=== PATIENT | male | born 1945 | race Hispanic/Latino ===

== ENCOUNTER 2023-05-21 06:11 | Day surgery (SDC) | payer OTHER ==
[2023-05-17 11:51] VITALS: BP 146/65; PULSE 51; RESP 16
[2023-05-17 11:57] LABS: BASOPHILS # (AUTO) 0.03 K/uL (0.00-0.20); BASOPHILS % (AUTO) 0.9 % (0.0-5.0); EOSINOPHILS # (AUTO) 0.09 K/uL (0.00-0.70); EOSINOPHILS % (AUTO) 2.7 % (0.0-8.0); HEMATOCRIT 35.8 % (42-54); IMMATURE GRANULOCYTE ABSOLUTE 0.01 K/uL (0-1); LYMPHOCYTES # (AUTO) 0.7 K/uL (1.0-4.8); LYMPHOCYTES % (AUTO) 22.1 % (21.0-51.0); MEAN CORPUSCULAR HEMOGLOBIN 32.1 pg (27.0-33.0); MEAN CORPUSCULAR HGB CONC 32.7 g/dL (32.0-36.0); MEAN CORPUSCULAR VOLUME 98.4 fL (79-99); MONOCYTES # (AUTO) 0.4 K/uL (0.1-1.0); MONOCYTES % (AUTO) 11.5 % (3.0-13.0); NEUTROPHILS # (AUTO) 2.1 K/uL (1.8-7.7); NEUTROPHILS % (AUTO) 62.5 % (40.0-77.0); PLATELET COUNT (AUTO) 128 K/uL (130-400); RED BLOOD CELL COUNT(AUTO) 3.64 MIL/uL (4.50-6.20); WHITE BLOOD COUNT (AUTO) 3.3 K/uL (4.8-10.8)
[2023-05-17 12:10] LABS: POTASSIUM 3.9 mmol/L (3.5-5.1)
[2023-05-17 12:19] LABS: INR 0.99 (0.85-1.15); PROTHROMBIN TIME 11.5 SEC (9.6-11.6)
[2023-05-17 12:20] LABS: PARTIAL THROMBOPLASTIN TIME 27.6 SEC (26.3-35.5)
[2023-05-17 12:23] LABS: B-TYPE NATRIURETIC PEPTIDE 62 pg/mL (0-100)
[2023-05-17 12:36] LABS: ADD UA MICROSCOPIC YES
[2023-05-17 12:38] LABS: APPEARANCE,URINE CLEAR (CLEAR); BILIRUBIN,URINE NEGATIVE (NEGATIVE); COLOR,URINE YELLOW (YELLOW); GLUCOSE, URINE (UA) NEGATIVE (NEGATIVE); KETONES,URINE NEGATIVE (NEGATIVE); LEUKOCYTE ESTERASE ,URINE NEGATIVE Leu/uL (NEGATIVE); MUCUS,URINE RARE LPF (None Seen); NITRATE,URINE NEGATIVE (NEGATIVE); PROTEIN,URINE NEGATIVE (NEGATIVE); SQUAMOUS EPITHELIAL CELL,UR RARE /HPF (0-2); UROBILINOGEN,URINE 0.2 mg/dL (0.2-1.0); WBC,URINE 0-1 /HPF (0-1)
[2023-05-21] VITALS (11 sets, daily range): BP systolic 141–168; BP diastolic 60–74; PULSE 43–63; RESP 10–14
[~2023-05-21] VITALS: Ht 172.7 cm; Wt 66.6 kg
[~2023-05-21 06:11] MED LIST: ATOR10 PO; CHOL100046 PO; CLOP75TA32 PO; GABA-529 PO; LOSA25TA41 PO; METO25TA6 PO; NITR0.4T50 SL; PANT40TA55 PO
[2023-05-21] MEDS ORDERED: 0.9%NACL 1000ML 1,000 ML IV ONE (07:27)
[2023-05-21] MEDS ORDERED: HEPARIN 10,000 UNIT/10ML (1,000 UNIT/ML) VIAL ONE (08:32)
[2023-05-21] MEDS ORDERED: IOHEXOL 350 MG/ML 100ML INFUS..BTL IV ONE (08:32)
[2023-05-21] MEDS ORDERED: NITROGLYCERIN 50MG VIAL ONE (08:32)
[2023-05-21] MEDS ORDERED: SODIUM BICARB 50MEQ 50ML VIAL 50 ML ONE (08:32)
[2023-05-21] MEDS ORDERED: LIDOCAINE HCL 400MG/20ML VIAL ONE (08:32)
[2023-05-21] MEDS ORDERED: NICARDIPINE 25MG INJ IV ONE (08:34)
[2023-05-21] MEDS ORDERED: IOHEXOL-350 50ML VIAL IV ONE ×2 (08:46→09:22)
[2023-05-21] MEDS ORDERED: MIDAZOLAM HCL 1 MG/ML 2ML VIAL ONE (08:56)
[2023-05-21] MEDS ORDERED: FENTANYL CITRATE PF 50 MCG/1 ML 2ML VIAL ONE (08:56)
[2023-05-21] MEDS ORDERED: 0.9%NACL 1000ML 1,000 ML IV SCH (10:00)
== END 2023-05-21 14:00 | disposition home or self-care (01) ==
LOC: DAH 06:11
PROVIDERS: ATTEND Internal Medicine Cardiovascular Disease
DX: I25.10 Atherosclerotic heart disease of native coronary artery without angina pectoris (principal); R94.39 Abnormal result of other cardiovascular function study; I73.9 Peripheral vascular disease, unspecified; E11.42 Type 2 diabetes mellitus with diabetic polyneuropathy; I11.9 Hypertensive heart disease without heart failure; E78.2 Mixed hyperlipidemia; K21.9 Gastro-esophageal reflux disease without esophagitis; Z79.84 Long term (current) use of oral hypoglycemic drugs; Z87.891 Personal history of nicotine dependence; Z79.899 Other long term (current) drug therapy; Z98.890 Other specified postprocedural states
CPT/HCPCS: 93458 ×2; 96360 ×2; 96361 ×2; 80048; 83880; 85025; 85610; 85730; 81001; 36415; 71045; 93005; C1894 ×2; C1769 ×2; A4649; Q9965; J3010; J3490 ×4; J7030; J1644 ×2; J2250; Q9967 ×2; A4215; A4335; A4222; A6260; A4221; A4663; A4216; A6206; A4606; A4223 ×3; 99156; 99157